=== PATIENT | male | born 1975 | race Caucasian/White ===

== ENCOUNTER 2016-11-30 12:13 | Emergency (ER) | payer OTHER, SELFPAY ==
--- NOTE | 2016-11-30 14:54 | RAD ---
3 VIEWS LUMBAR SPINE: Date: 11/30/16 HISTORY: Back pain. FINDINGS: AP, lateral, and coned-down views of the lumbar spine obtained. Images demonstrate five non-rib bearing lumbar vertebra. There is also lumbarization of the S1 verte bral body with a pseudoarthrosis with the left S2 sacrum. Anterior osteophytes seen involving the L3 and L4 levels. 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 POS: [facility]
--- NOTE | 2016-11-30 15:08 | RAD ---
AP VIEW PELVIS: Date: 11/30/16 HISTORY: Back and tailbone pain, status post injury. FINDINGS: AP view of pelvis obtained. The pelvis is unremarkable. No evidence of pelvic fractures, subluxation s, or bony lesions seen. IMPRESSION: Unremarkable AP view pelvis. POS: [facility]
== END 2016-11-30 13:32 | disposition home or self-care (01) ==
LOC: BURERS 12:13
DX: S30.0XXA Contusion of lower back and pelvis, initial encounter (principal); F17.210 Nicotine dependence, cigarettes, uncomplicated; W18.30XA Fall on same level, unspecified, initial encounter
CPT/HCPCS: 72100; 72170; 96372; J2270

== ENCOUNTER 2017-01-01 09:46 | Emergency (ER) | payer OTHER | END 2017-01-01 10:39 | disposition home or self-care (01) | LOC: BURERS 09:46 | DX: J03.90 Acute tonsillitis, unspecified (principal); F17.210 Nicotine dependence, cigarettes, uncomplicated | CPT/HCPCS: 87081; 87430; 99283 ==

== ENCOUNTER 2020-08-16 16:41 | Emergency (ER) | payer OTHER, SELFPAY ==
[2020-08-16] MEDS ORDERED: Fluorescein Opthalmic Strip ONE (16:53)
[2020-08-16] MEDS ORDERED: Tetracaine 0.5% PF 4 ML BOT ONE (16:53)
[2020-08-16] MEDS ORDERED: HYDROcodone/Acetaminophen 10/325 mg Tablet ONE (17:36)
[2020-08-16] MEDS ORDERED: Erythromycin Base 0.5% Ophth Oint 3.5 gm Tube ONE (17:36)
== END 2020-08-16 17:47 | disposition home or self-care (01) ==
LOC: BURERS 16:41
DX: T15.91XA Foreign body on external eye, part unspecified, right eye, initial encounter (principal); F17.210 Nicotine dependence, cigarettes, uncomplicated
CPT/HCPCS: 99283